=== PATIENT | female | born 1990 | race Hispanic/Latino ===

== ENCOUNTER 2017-08-23 08:30 | Emergency (ER) | payer MEDICAID ==
[2017-08-23 09:18] LABS: APPEARANCE,URINE SL CLOUDY (CLEAR); BILIRUBIN,URINE NEGATIVE (NEGATIVE); COLOR,URINE YELLOW (YELLOW); GLUCOSE, URINE (UA) NEGATIVE (NEGATIVE); KETONES,URINE NEGATIVE (NEGATIVE); LEUKOCYTE ESTERASE ,URINE MODERATE (NEGATIVE); NITRATE,URINE NEGATIVE (NEGATIVE); OCCULT BLOOD,URINE SMALL (NEGATIVE); PROTEIN,URINE TRACE (NEGATIVE); UROBILINOGEN,URINE 0.2 mg/dL (0.2-1.0)
[2017-08-23 09:22] LABS: HCG,QUAL RESULT NEGATIVE (NEGATIVE)
[2017-08-23] MEDS ORDERED: ONDANSETRON ODT 4 MG TAB ONE (09:25)
[2017-08-23 09:28] LABS: AMPHET/METH SCREEN,URINE NEGATIVE (NEGATIVE); BARBITURATE SCREEN, URINE NEGATIVE (NEGATIVE); BENZODIAZEPINES SCREEN,URINE NEGATIVE (NEGATIVE); CANNABINOID SCREEN,URINE NEGATIVE (NEGATIVE); COCAINE SCREEN,URINE NEGATIVE (NEGATIVE); OPIATE SCREEN,URINE NEGATIVE (NEGATIVE); PHENCYCLIDINE SCREEN,URINE NEGATIVE (NEGATIVE)
[2017-08-23 09:39] LABS: BACTERIA,URINE Few /HPF (None Seen); RBC,URINE 0-1 /HPF (0-1); SQUAMOUS EPITHELIAL CELL,UR Rare /HPF (0-2); WBC,URINE 51-100 /HPF (0-1)
[2017-08-23] MEDS ORDERED: CEFTRIAXONE SODIUM 1 GM ONE (10:01)
[2017-08-23] MEDS ORDERED: PHENAZOPYRIDINE HCL 200 MG TABLET ONE (10:01)
[2017-08-23] MEDS ORDERED: LIDOCAINE HCL-MPF 1% 2ML VIAL ONE (10:01)
== END 2017-08-23 10:36 | disposition home or self-care (01) ==
LOC: EDH 08:30
DX: N30.00 Acute cystitis without hematuria (principal); Z98.51 Tubal ligation status
CPT/HCPCS: 80305; 81001; 81025; 96372; 99284; J0696; J3490